=== PATIENT | female | born 1990 | race Caucasian/White ===

== ENCOUNTER 2016-04-01 10:16 | Emergency (ER) | payer OTHER ==
[2016-04-01 10:28] VITALS: BP 120/74; PULSE 71; RESP 16; TEMP 96.8; O2SAT 95
--- NOTE | 2016-04-01 11:05 | DX ---
Left Middle Finger 3 Views History: Injury 2 days ago with glass, assess for foreign object. Comparison: None available. Findings: No fractures identified. Alignment is normal. Bone mineralization is normal. There is no si gnificant degenerative change. There is a 3 mm radiopaque structure at the palmar aspect of the proxi mal interphalangeal joint suspicious for glass. Impression: 3 mm foreign object at the palmar aspect of the proximal interphalangeal joint.
--- NOTE | 2016-04-01 12:15 | EDPHY ---
H & P Smoking Status: Never smoked Time Seen by Provider: 04/01/16 10:35 HPI/ROS: CHIEF COMPLAINT: left middle finger foreign body HISTORY OF PRESENT ILLNESS: 25-year-old female presents with left middle finger pain. Patient was at work 2 days ago when a glass vase broke in her hand she had a small laceration and picked a small piece of glass out of this, she woke up this morning with increased redness, pain and swelling and is concerned there is a retained foreign body. She is [id number], tetanus is up-to- date, denies numbness or tingling to this finger. (Gini Briscoe) Physical Exam: GEN: Awake, alert, oriented, no acute distress RESP: nl resp effort MSK: Decreased range of motion at PIP joint palmar aspect with tenderness, swelling and mild erythema, SKIN: abrasion over palmar aspect of left hand middle finger PIP joint (Gini Briscoe) Constitutional: Initial Vital Signs Temperature (C) 36.0 C 04/01/16 10:26 Heart Rate 71 04/01/16 10:26 Respiratory Rate 16 04/01/16 10:26 Blood Pressure 120/74 04/01/16 10:26 O2 Sat (%) 95 04/01/16 10:26 O2 Delivery Mode Room Air Allergies/Adverse Reactions: No Known Allergies Allergy (Unverified 04/01/16 12:42) Home Medications: Medication Instructions Recorded Cephalexin [Keflex] 500 mg PO QID 5 Days 04/01/16 MDM/Departure - MDM Diagnostics: Left middle finger x-ray independently reviewed by me- Impression: 3 mm foreign object at the palmar aspect of the proximal interphalangeal joint. Dictated By: Ronnell Rivera MD (Gini Briscoe) Procedures: Foreign body removal left middle finger- Left middle finger anesthetized with a digital block using 5 mL of 1% lidocaine without epinephrine, small superficial 5 mm incision made over PIP joint palmar aspect, 3 mm glass foreign body removed with tweezers without difficulty. ( Gini Briscoe) Medications Given: Discontinued Medications Diphtheria/Tetanus/Acell Pertussis (Boostrix) 0.5 ml IM .ONCE ONE Stop: 04/01/16 12:43 Last Admin: 04/01/16 12:49 Dose: 0.5 ml ED Course/Re-evaluation: This patient was evaluated and managed by the nurse practitioner. I have reviewed the chart and agree with the findings and plan of care as documented. ( Jill Alvares) - Depart Disposition: Home, Routine, Self-Care Clinical Impression: Foreign body of left middle finger Condition: Good Instructions: Soft Tissue Foreign Body (ED) Additional Instructions: Soak your middle finger 5 times a day for 5 minutes, take your antibiotics as prescribed. Return for any worsening symptoms, fevers, chills, increased redness or pain in this finger. Stand Alone Forms: Work Comp Follow Up Prescriptions: Cephalexin [Keflex] 500 mg PO QID 5 Days Referrals: IN STATE,. [Primary Care Provider] - As per Instructions
[2016-04-01] MEDS ORDERED: TDAP ADULT 0.5 ML INJ (BOOSTRIX) IM ONE (12:42)
== END 2016-04-01 12:56 | disposition home or self-care (01) ==
PROC: 0JCK0ZZ Extirpation of Matter from Left Hand Subcutaneous Tissue and Fascia, Open Approach (ICD-10-PCS; principal; 2016-04-01)
DX: S60.453A Superficial foreign body of left middle finger, initial encounter (principal); Z23 Encounter for immunization; W25.XXXA Contact with sharp glass, initial encounter

== ENCOUNTER 2016-12-18 16:07 | Emergency (ER) | payer OTHER ==
[2016-12-18 16:13] VITALS: TEMP 97.3
--- NOTE | 2016-12-18 16:42 | EDPHY ---
H & P Time Seen by Provider: 12/18/16 16:26 HPI/ROS: CHIEF COMPLAINT: Laceration left ring finger HISTORY OF PRESENT ILLNESS: 26-year-old female presents to the emergency department with a laceration to her left ring finger. Patient was at work just prior to arrival and cut her finger with a wooden box maker. She is right-hand dominant. She was able to control the bleeding with firm direct pressure. She believes her tetanus shot is current. Denies any other injuries or trauma. ROS: Denies numbness or tingling in her fingers, retained foreign body. Past Medical/Surgical History: Negative Social History: Single and works at [employer] Smoking Status: Never smoked Physical Exam: On examination the patient has a 1.5 cm flap laceration to the distal, palmar aspect of the left 4th finger. No nail avulsion or involvement of the nail. Laceration does not extend into the D IP joint. No palpable bony tenderness. Full range of motion of her fingers. Normal sensation to light touch with normal 2 point discrimination. The other fingers do not appear injured. Constitutional: Initial Vital Signs Temperature (C) 36.3 C 12/18/16 16:11 Heart Rate 73 12/18/16 16:11 Respiratory Rate 18 12/18/16 16:11 Blood Pressure 104/67 12/18/16 16:11 O2 Sat (%) 93 12/18/16 16:11 O2 Delivery Mode Room Air Allergies/Adverse Reactions: No Known Allergies Allergy (Unverified 04/01/16 12:42) Home Medications: Medication Instructions Recorded Cephalexin [Keflex] 500 mg PO QID 5 Days cap 04/01/16 MDM/Departure - MDM Procedures: Laceration repair. Verbal consent was obtained from the patient. The 1.5 cm flap laceration on the left ring finger was anesthetized using digital block using 1% lidocaine without epinephrine 0.5% bupivacaine without epinephrine. The wound was irrigated with saline, draped and explored to its base with a gloved finger. There were no deep structures involved. No tendon injury was identified. The wound was repaired with 5 0 Ethilon, 2 sutures. The wound repair was simple. The procedure was performed by myself. ED Course/Re-evaluation: 26-year-old female presents with laceration to her left 4th finger. Laceration was repaired, see procedure note. She was given wound care precautions. Her tetanus shot is current. - Depart Disposition: Home, Routine, Self-Care Clinical Impression: Laceration of left ring finger Qualifiers: Encounter type: initial encounter Damage to nail status: without damage Foreign body presence: without foreign body Qualified Code(s): S61.215A - Laceration without foreign body of left ring finger without damage to nail, initial encounter Condition: Good Instructions: Care For Your Stitches (ED), Laceration (ED), Acute Wounds (ED) Additional Instructions: Wound Care Follow-Up: Removal of sutures in 10 days. Suture removal is complimentary in uncomplicated cases. Infection or abnormal findings would require reevaluation by the MD. In that case, you may be billed. Return if you notice any signs or symptoms of infection such as redness, swelling, increased pain, fever, purulent drainage.
[2016-12-18 17:50] VITALS: BP 107/66; PULSE 74; RESP 16; O2SAT 94
== END 2016-12-28 10:20 | disposition home or self-care (01) ==
PROC: 0HQGXZZ Repair Left Hand Skin, External Approach (ICD-10-PCS; principal; 2016-12-18)
DX: S61.215A Laceration without foreign body of left ring finger without damage to nail, initial encounter (principal); W45.8XXA Other foreign body or object entering through skin, initial encounter